=== PATIENT | female | born 1960 | race Two or more races ===

== ENCOUNTER 2018-11-30 00:24 | Emergency (ER) | payer MEDICAID, OTHER ==
[~2018-11-30] VITALS: Ht 165.1 cm; Wt 82.2 kg
[2018-11-30 02:50] LABS: BASOPHILS % 0.5 % (0.0-2.0); EOSINOPHILS % 2.2 % (0.0-5.0); HEMATOCRIT. 39.1 % (36.0-48.0); HEMOGLOBIN. 13.3 g/dL (12.0-16.0); LYMPHOCYTES % 31.1 % (20.0-50.0); MEAN CORPUSCULAR HEMOGLOBIN 29.2 pg (28.0-32.0); MEAN PLATELET VOLUME 10.2 fl (7.4-10.4); MONOCYTES % 13.7 % (2.0-8.0); NEUTROPHILS % 52.5 % (40.0-76.0); PLATELET 152 x1000/uL (130-400); RED BLOOD CELL COUNT 4.55 mill/uL (4.2-5.4); RED CELL DISTRIBUTION WIDTH 13.4 % (11.6-14.6)
[2018-11-30 02:56] LABS: CHLORIDE 108 mEq/L (98-107)
[2018-11-30 03:01] LABS: INR 0.9; PROTHROMBIN TIME 9.7 sec (9.6-11.0)
[2018-11-30 03:11] LABS: CLARITY URINE TURBID (CLEAR); COLOR URINE YELLOW (YELLOW); KETONES URINE TRACE (NEGATIVE); LEUKOCYTE ESTERASE URINE 1+ (NEGATIVE); NITRITE URINE NEGATIVE (NEGATIVE); OCCULT BLOOD URINE 3+ (NEGATIVE); PH URINE 5.5 (4.5-8.0); PROTEIN URINE 2+ (NEGATIVE); SPECIFIC GRAVITY URINE 1.031 (1.005-1.030)
[2018-11-30 06:20] VITALS: BP 106/58
== END 2018-11-30 07:08 | disposition home or self-care (01) ==
LOC: ER 00:24
DX: N39.0 Urinary tract infection, site not specified (principal); N85.2 Hypertrophy of uterus; Z88.0 Allergy status to penicillin; Z88.1 Allergy status to other antibiotic agents
CPT/HCPCS: 36415; 76830; 76856; 80053; 81003; 81025; 85025; 85610; 99284; Z7610

== ENCOUNTER 2020-08-09 10:55 | Emergency (ER) | payer OTHER ==
[~2020-08-09] VITALS: Ht 175.3 cm; Wt 82.0 kg
[2020-08-09 11:02] VITALS: BP 140/83
[2020-08-09] MEDS ORDERED: ACETAMINOPHEN 500MG TABLET PO ONE (12:00)
[2020-08-09] MEDS ORDERED: IBUPROFEN 600MG TABLET PO ONE (12:45)
[2020-08-09] MEDS ORDERED: IBUP-2029 MT (13:46)
[2020-08-09] MEDS ORDERED: CYCL10TA7 MT (13:46)
== END 2020-08-09 14:20 | disposition home or self-care (01) ==
LOC: ER 10:55
DX: M25.512 Pain in left shoulder (principal); Z86.19 Personal history of other infectious and parasitic diseases; Z98.890 Other specified postprocedural states; Z88.3 Allergy status to other anti-infective agents; Z88.0 Allergy status to penicillin
CPT/HCPCS: 73030; 99283